=== PATIENT | female | born 1970 | race African-American/Black ===

== ENCOUNTER 2017-02-17 08:10 | Inpatient (IN) | payer OTHER ==
[~2017-02-17] VITALS: Ht 162.6 cm; Wt 90.0 kg
[~2017-02-17 08:10] MED LIST: AMLO-147 PO; AMOX1TAB10 PO; ASPI-664 PO; FAMO-96 PO; FLUT9.9S NASAL; GABA300C PO; INSU100C SC; LANT3I SC; LISI-525 PO; LORA-186 PO; METO-319 PO; NYST1000 PO; PANT40TA4 PO
[2017-02-17] MEDS ORDERED: SOD CHLORIDE 0.9% 1,000 ML IV STA ×2 (08:29→12:58)
[2017-02-17] MEDS ORDERED: ASPIRIN 325 MG TAB PO STA (08:29)
[2017-02-17] MEDS ORDERED: LORAZEPAM 2 MG INJ IV ONE (08:30)
--- NOTE | 2017-02-17 08:34 | ERD ---
ER Documentation Chief Complaint Chief Complaint LEFT side body weakness , onset 2 days ago HPI This a 46-year-old diabetic complaining of left-sided weakness and numbness. The patient states that her symptoms began 2 days ago. She states that her left side, face, arm and leg developed some tingling on Friday and then yesterday she developed some weakness on the left arm and leg. She said she had a hard time grabbing glasses with the left hand and she was dragging her left leg while walking. She did not come to the ER because she says she has a 5 -year-old daughter no one could take care of her at that time. She says today her symptoms are little worse. No headache. She says she has a history of prior strokes and TIA. No slurred speech no headache no visual change. ROS All systems reviewed and are negative except as per history of present illness. Medications Home Meds Active Scripts Gabapentin* (Neurontin*) 300 Mg Cap, 300 MG PO BID for 30 Days, CAP Prov:DEVONTE PAYAN 07/12/15 Reported Medications Levothyroxine Sodium* (Levothyroxine Sodium*) 88 Mcg Tablet, 88 MCG PO BEFORE BREAKFAST, #30 TAB 02/17/17 Insulin Glargine,Hum.rec.anlog (Toujeo Solostar) 300 Unit/1 Ml Insuln.pen, 45 UNIT SQ QHS 02/17/17 Insulin Lispro (Humalog Kwikpen) 200 Unit/1 Ml Insuln.pen, 35 UNIT SQ AC MEALS, EA 02/17/17 Metoprolol Succinate* (Toprol XL*) 25 Mg Tab.sr.24h, 75 MG PO DAILY, #90 TAB 02/17/17 Aspirin* (Aspirin* EC) 81 Mg Tablet.dr, 81 MG PO DAILY, TAB 04/18/14 Discontinued Reported Medications Metoprolol Succinate* (Toprol XL*) 50 Mg Tab.er.24h, 50 MG PO BID, TAB 04/18/14 Discontinued Scripts Amlodipine Besylate* (Amlodipine Besylate*) 10 Mg Tablet, 10 MG PO DAILY for 30 Days, TAB 1 Refill Prov:LEATHA CLEARY 10/21/15 Loratadine* (Claritin*) 10 Mg Tablet, 10 MG PO DAILY for 30 Days, TAB 1 Refill Prov:MADIHALEATHA Wolff. 10/21/15 Fluticasone Propionate (Flonase Allergy Relief) 9.9 Ml Peck.susp, 1 SPRAY NASAL BID, #1 BOTTLE 1 Refill TO EACH NOSTRIL Prov:LEATHA CLEARY 10/21/15 Famotidine* (Pepcid*) 20 Mg Tablet, 20 MG PO BID, #60 TAB Prov:LEATHA CLEARY 10/21/15 Nystatin (Nystatin) 100,000 Unit/1 Ml Oral.susp, 5 ML PO QID for 9 Days, ML Prov:LEATHA CLEARY 10/21/15 Amox Tr/Potassium Clavulanate (Amox Tr-K Clv 875-125 Mg Tab) 1 Tab Tablet, 1 TAB PO BID, #18 TAB Prov:LEATHA CLEARY. 10/21/15 Insulin Glargine* (Lantus*) 100 Unit/Ml Soln, 25 UNIT SC DAILY for 30 Days, EA 2 Refills Prov:LEATHA CLEARY 10/21/15 Insulin Lispro (Humalog) 100 U/Ml Cartridge, 10 UNITS SC BID, #30 EA 2 Refills Prov:LEATHA CLEARY. 10/21/15 Pantoprazole* (Pantoprazole*) 40 Mg Tabec, 40 MG PO DAILY@06 for 30 Days Prov:DEVONTE PAYAN 07/12/15 Lisinopril* (Zestril*) 20 Mg Tab, 20 MG PO BID for 30 Days, TAB Prov:DEVONTE PAYAN 07/12/15 Allergies Allergies: Coded Allergies: No Known Allergy (Unverified , 02/17/17) PMhx/Soc History of Surgery: No (denies) Anesthesia Reaction: No Hx Neurological Disorder: Yes (neuropathy,) Hx Respiratory Disorders: No Hx Cardiac Disorders: No (HTN) Hx Psychiatric Problems: No (denies) Hx Miscellaneous Medical Probl: Yes (CHRONIC PAIN SYNDROME, GI BLEED) Hx Alcohol Use: No Hx Substance Use: No Hx Tobacco Use: No (in the past) FmHx Family History: No coronary disease Physical Exam Vitals Vital Signs Date Time Temp Pulse Resp B/P Pulse Ox O2 Delivery O2 Flow Rate FiO2 02/17/17 11:22 82 16 102/88 99 Room Air 02/17/17 08:17 98.1 89 28 180/110 99 Physical Exam Const: Well-developed, well-nourished Head: Atraumatic, normocephalic Eyes: Normal Conjunctiva, PERRLA, EOMI, normal sclera, no nystagmus ENT: Normal External Ears, Nose and Mouth, moist mucus membranes. Neck: Full range of motion. No meningismus, no lymphadenopathy. Resp: Clear to auscultation bilaterally, no wheezing, rhonchi, rales Cardio: Regular rate and rhythm, no murmurs, S1 S2 present Abd: Soft, non tender x 4, non distended. Normal bowel sounds, no guarding or rebound, no pulsitile abdominal masses or bruits Skin: No petechiae or rashes, no ecchymosis , no maculopapular rash Back: No midline or flank tenderness Ext: No cyanosis, or edema, FROM x 4, normal inspection, neurovascularly intact x 4 Neur: [Awake and alert, left leg strength is 3 out of 5, left arm strength is 3 out of 5, left face is normal, left face arm and leg both with decreased sensation Psych: Anxious, hyperventilating Result Diagram: 02/17/17 0748 02/17/17 0748 Results 24 hrs Laboratory Tests Test 02/17/17 07:48 02/17/17 08:50 02/17/17 09:56 02/17/17 10:46 White Blood Count 11.410^3/ul Red Blood Count 4.9410^6/ul Hemoglobin 12.9g/dl Hematocrit 40.6% Mean Corpuscular Volume 82.2fl Mean Corpuscular Hemoglobin 26.1pg Mean Corpuscular Hemoglobin Concent 31.8g/dl Red Cell Distribution Width 13.9% Platelet Count 95941^3/UL Mean Platelet Volume 10.6fl Neutrophils % 82.0% Lymphocytes % 12.1% Monocytes % 4.8% Eosinophils % 0.3% Basophils % 0.3% Nucleated Red Blood Cells % 0.0/100WBC Neutrophils # 9.310^3/ul Lymphocytes # 1.410^3/ul Monocytes # 0.610^3/ul Eosinophils # 0.010^3/ul Basophils # 0.010^3/ul Nucleated Red Blood Cells # 0.010^3/ul Sodium Level 131mmol/L Potassium Level 5.5mmol/L Chloride Level 96mmol/L Carbon Dioxide Level 18mmol/L Anion Gap 23 Blood Urea Nitrogen 28mg/dl Creatinine 0.93mg/dl Glucose Level 613mg/dl Hemoglobin A1c 10.3% Calcium Level 8.8mg/dl Total Bilirubin 0.6mg/dl Direct Bilirubin 0.00mg/dl Indirect Bilirubin 0.6mg/dl Aspartate Amino Transf (AST/SGOT) 20IU/L Alanine Aminotransferase (ALT/SGPT) 34IU/L Alkaline Phosphatase 271IU/L Troponin I < 0.012ng/ml Total Protein 7.1g/dl Albumin 3.8g/dl Globulin 3.30g/dl Albumin/Globulin Ratio 1.15 Prothrombin Time 11.2Sec Prothrombin Time Ratio 0.9 INR International Normalized Ratio 0.81 Activated Partial Thromboplast Time 25.2Sec Bedside Glucose 562mg/dL 491mg/dL Current Medications Medications (Trade) Dose Ordered Sig/Leeann Route PRN Reason Start Time Stop Time Status Last Admin Dose Admin Sodium Chloride (NS) 1,000 ml @ 1,000 mls/hr Q1H STAT IV 02/17/17 08:29 02/17/17 09:28 DC 02/17/17 08:38 Aspirin (Aspirin) 325 mg ONCE STAT PO 02/17/17 08:29 02/17/17 08:31 DC 02/17/17 08:37 Lorazepam (Ativan) 1 mg ONCE ONCE IV 02/17/17 08:30 02/17/17 08:31 DC 02/17/17 08:38 Insulin Human Regular (Humulin R) 12 unit ONCE ONCE SC 02/17/17 10:00 02/17/17 10:01 DC 02/17/17 09:58 Procedures/MDM EKG: Rate/Rhythm: Normal Sinus Rhythm,NL intervals QRS, ST, QT: NORMAL [place], QRS, QT] Impression: NORMAL EKG PROCEDURE: CT Brain without contrast. CLINICAL INDICATION: Possible CVA. TECHNIQUE: A CT of the brain was performed on a [employer] 64-slice CT scanner utilizing axial imaging from the skull base through the vertex without IV contrast. Multiplanar reformatted images were made. Images were reviewed on a PACS workstation. The CTDIvol is 44.68 mGy and the DLP is 720.23 mGycm. DICOM images are available. One or more of the following dose reduction techniques were utilized: 1.) Automated exposure control 2.) Adjustment of the mA +/- kV according to patient's size 3.) Use of iterative reconstruction technique. COMPARISON: None. FINDINGS: There is no intracranial hemorrhage, mass effect, or midline shift. Mild generalized parenchymal volume loss is present. Areas of decreased attenuation are present right lentiform nuclei and posterior right internal capsule. Diagnostic considerations include remote lacunar infarcts and microvascular white matter ischemic disease, demyelinating plaques, and the sequelae of remote infectious or inflammatory changes. The ventricles are proportionate in size and demonstrate no evidence of hydrocephalus. No space occupying intra- axial masses or extra-axial fluid collections are present. There is no opacification of the mastoid sinuses. Mucosal thickening of the bilateral anterior ethmoid and the periphery of the left maxillary sinuses is present. IMPRESSION: 1. Areas of decreased attenuation within the right lentiform nuclei and posterior internal capsule with diagnostic considerations including remote lacunar infarcts and microvascular white matter ischemic changes, demyelinating plaques, and the sequelae of remote infectious or inflammatory changes. 2. Mild generalized parenchymal volume loss. 3. Mild mucosal thickening of the bilateral anterior ethmoid and left maxillary sinuses. RPTAT: HRSR Physician Felicity Date Time Electronically viewed and signed by Physician Felicity on 02/17/2017 09 :50 RR/ CC: DONOVAN GARCIA DO PROCEDURE: XR Chest. CLINICAL INDICATION: Possible stroke TECHNIQUE: A single AP view of the chest was obtained. COMPARISON: Chest x-ray dated 10/18/2015 FINDINGS: No focal airspace opacification, pleural effusion or pneumothorax is seen. The cardiomediastinal silhouette is within normal limits for size. The osseous structures are unremarkable. IMPRESSION: Unremarkable chest x-ray. RPTAT: HH .Lola Galaviz MD, Date Time Electronically viewed and signed by .Lola Galaviz MD, on 02/17/2017 09 :55 .G/ CC: DONOVAN GARCIA DO The patient is not a TPA candidate due to onset was this weekend. The patient still symptomatic now. The patient's blood sugar is out of control and she is acidotic. Will give IV fluids she is mildly hyperkalemic. We will admit for MRI and stroke workup and blood sugar control. Page Dr.KAMMA Mercado Diagnosis: Primary Impression: CVA (cerebral vascular accident) CVA mechanism: unspecified Qualified Code: I63.9 - Cerebrovascular accident (CVA), unspecified mechanism Condition: Stable DONOVAN GARCIA DO Feb 17, 2017 08:34 DONOVAN GARCIA DO Feb 17, 2017 08:34
[2017-02-17] MEDS ORDERED: METO-335 PO (08:43)
[2017-02-17] MEDS ORDERED: INSU200I SQ (08:43)
[2017-02-17] MEDS ORDERED: LEVO88TA3 PO (08:44)
[2017-02-17] MEDS ORDERED: INSU300I SQ (08:44)
[2017-02-17 09:05] LABS: BASOPHILS % 0.3 % (0.0-2.0); EOSINOPHILS % 0.3 % (0.0-7.0); HEMATOCRIT 40.6 % (37.0-47.0); HEMOGLOBIN 12.9 g/dl (12.0-16.0); LYMPHOCYTES # 1.4 10^3/ul (0.8-2.9); LYMPHOCYTES % 12.1 % (15.0-51.0); MEAN CORPUSCULAR HEMOGLOBIN 26.1 pg (29.0-33.0); MEAN CORPUSCULAR HGB CONC 31.8 g/dl (32.0-37.0); MEAN CORPUSCULAR VOLUME 82.2 fl (82.0-101.0); MEAN PLATELET VOLUME 10.6 fl (7.4-10.4); MONOCYTE # 0.6 10^3/ul (0.3-0.9); MONOCYTES % 4.8 % (0.0-11.0); NEUTROPHIL # 9.3 10^3/ul (1.6-7.5); PLATELET COUNT 455 10^3/UL (140-415); RED BLOOD COUNT 4.94 10^6/ul (4.20-5.40); RED CELL DISTRIBUTION WIDTH 13.9 % (11.5-14.5); WHITE BLOOD COUNT 11.4 10^3/ul (4.8-10.8)
[2017-02-17 09:19] LABS: INR 0.81; PROTIME 11.2 Sec (12.2-14.2); PT RATIO 0.9
[2017-02-17 09:20] LABS: PARTIAL THROMBOPLASTIN TIME 25.2 Sec (25.0-35.0)
[2017-02-17 09:24] LABS: ALANINE AMINOTRANSFERASE 34 IU/L (13-69); ALBUMIN 3.8 g/dl (3.3-4.9); ALBUMIN/GLOBULIN RATIO 1.15; ALKALINE PHOSPHATASE 271 IU/L (42-121); ANION GAP 23 (8-16); ASPARTATE AMINO TRANSFERASE 20 IU/L (15-46); BILIRUBIN,INDIRECT 0.6 mg/dl (0-1.1); BILIRUBIN,TOTAL 0.6 mg/dl (0.2-1.3); BLOOD UREA NITROGEN 28 mg/dl (7-20); CALCIUM 8.8 mg/dl (8.4-10.2); CARBON DIOXIDE 18 mmol/L (21-31); CHLORIDE 96 mmol/L (97-110); CREATININE 0.93 mg/dl (0.44-1.00); POTASSIUM 5.5 mmol/L (3.5-5.1); SODIUM 131 mmol/L (135-144); TOTAL PROTEIN 7.1 g/dl (6.1-8.1)
[2017-02-17 09:32] LABS: GLUCOSE 613 mg/dl (70-220)
[2017-02-17 09:36] LABS: TROPONIN-I < 0.012 ng/ml (0.00-0.12)
--- NOTE | 2017-02-17 09:50 | RADRPT ---
PROCEDURE: CT Brain without contrast. CLINICAL INDICATION: Possible CVA. TECHNIQUE: A CT of the brain was performed on a [employer] 64-slice CT scanner utilizing axial imaging from the skull base through the vertex without IV contrast. Multiplanar reformatted images were made. Images were reviewed on a PACS workstation. The CTDIvol is 44.68 mGy and the DLP is 720 .23 mGycm. DICOM images are available. One or more of the following dose reduction techniques were utilized: 1.) Automated exposure control 2.) Adjustment of the mA +/- kV according to patient's size 3.) Use of iterative reconstruction technique. COMPARISON: None. FINDINGS: There is no intracranial hemorrhage, mass effect, or midline shift. Mild generalized parenchymal vol ume loss is present. Areas of decreased attenuation are present right lentiform nuclei and posterior right internal capsule. Diagnostic considerations include remote lacunar infarcts and microvascular white matter ischemic disease, demyelinating plaques, and the sequelae of remote infectious or infl ammatory changes. The ventricles are proportionate in size and demonstrate no evidence of hydrocepha jair. No space occupying intra-axial masses or extra-axial fluid collections are present. There is no opacification of the mastoid sinuses. Mucosal thickening of the bilateral anterior ethmo id and the periphery of the left maxillary sinuses is present. IMPRESSION: 1. Areas of decreased attenuation within the right lentiform nuclei and posterior internal capsule w ith diagnostic considerations including remote lacunar infarcts and microvascular white matter ische gideon changes, demyelinating plaques, and the sequelae of remote infectious or inflammatory changes. 2. Mild generalized parenchymal volume loss. 3. Mild mucosal thickening of the bilateral anterior ethmoid and left maxillary sinuses. RPTAT: HRSR Physician Felicity Date Time Electronically viewed and signed by Physician Felicity on 02/17/2017 09:50 RR/
--- NOTE | 2017-02-17 09:56 | RADRPT ---
PROCEDURE: XR Chest. CLINICAL INDICATION: Possible stroke TECHNIQUE: A single AP view of the chest was obtained. COMPARISON: Chest x-ray dated 10/18/2015 FINDINGS: No focal airspace opacification, pleural effusion or pneumothorax is seen. The cardiomediastinal si lhouette is within normal limits for size. The osseous structures are unremarkable. IMPRESSION: Unremarkable chest x-ray. RPTAT: HH .Lola Galaviz MD, MD Date Time Electronically viewed and signed by .Lola Galaviz MD, on 02/17/2017 09:55 .G/
[2017-02-17] MEDS ORDERED: INSULIN REGULAR, HUMAN 100 UNIT/1 ML 3ML VIAL SC ONE ×2 (10:00→13:30)
[2017-02-17] MEDS ORDERED: SOD CHLORIDE 0.9% 1,000 ML IV SCH (13:05)
[2017-02-17] MEDS ORDERED: ONDANSETRON 4 MG INJ IV PRN ×2 (13:30→17:30)
[2017-02-17] MEDS ORDERED: ACETAMINOPHEN 325 MG TAB PO PRN ×2 (13:30→17:30)
[2017-02-17 14:35] VITALS: Ht 162.6 cm; Wt 90.0 kg
[2017-02-17] MEDS: SOD CHLORIDE 0.9% 1,000 ML IV SCH (17:22)
[2017-02-17] MEDS ORDERED: DOCUSATE SODIUM 100 MG CAP PO PRN (17:30)
[2017-02-17] MEDS ORDERED: NACL 0.9% 3 ML SYG IV SCH (17:30)
[2017-02-17] MEDS ORDERED: BISACODYL 10 MG SUPP PR PRN (17:30)
[2017-02-17] MEDS ORDERED: MAGNESIUM HYDROXIDE 30ML CUP PO PRN (17:30)
[2017-02-17] MEDS ORDERED: DEXTROSE 50% 50 ML SYRINGE IV PRN ×2 (18:00)
[2017-02-17] MEDS ORDERED: GLUCOSE GEL 15 GRAM TUBE BUCCAL PRN (18:00)
[2017-02-17] MEDS ORDERED: GLUCAGON 1 MG INJ IM PRN (18:00)
[2017-02-17] MEDS ORDERED: GLUCOSE GEL 15 GRAM TUBE PO PRN ×2 (18:00)
[2017-02-17] MEDS: INSULIN ASPART [NOVOLOG] 3 ML PEN SC SCH ×3 (18:00→22:29)
[2017-02-17 20:52] VITALS: TEMP 98.6
--- NOTE | 2017-02-17 20:54 | RADRPT ---
PROCEDURE: MRI Brain without contrast. CLINICAL INDICATION: Stroke TECHNIQUE: Routine MRI of the brain performed without intravenous contrast. COMPARISON: CT brain 02/17/2017 FINDINGS: Diffusion: 13 mm late acute infarct is present within the dorsal limb of the right internal capsule and adjacent thalamus; corresponding to the low attenuation changes on the [facility] Hemorrhage: No evidence of focal hematoma or subarachnoid hemorrhage. No evidence for remote blood d egradation products. Mass effect/midline shift: None. Parenchymal volume: Appears within normal limits for the patient's age. Ventricular system: Concordant with the degree of parenchymal volume. Parenchymal signal changes: Chronic lacunar infarcts also observed involving the right lentiform nuc leus, right thalamus, and right sinha radiata. Vasculature: Appropriate flow voids suggesting patency of the central arterial system and visualize d dural venous sinuses. Paranasal sinuses: Mild mucosal thickening of the paranasal sinuses is observed. Mastoid air cells: Clear. Calvarium: Within normal limits. Extracranial soft tissues: Within normal limits. IMPRESSION: 13 mm late acute infarct is present within the dorsal limb of the right internal capsule and adjacen t thalamus; corresponding to the low attenuation changes on the prior CT scan of the brain. Chronic lacunar infarcts also observed involving the right lentiform nucleus, right thalamus, and ri ght sinha radiata. RPTAT: AADD .Krish Chavez MD, MD Date Time Electronically viewed and signed by .Krish Chavez MD, on 02/17/2017 20:53 .B/
[2017-02-17] MEDS ORDERED: LABETALOL HCL 20MG INJ IV ONE (21:00)
--- NOTE | 2017-02-17 21:00 | RADRPT ---
PROCEDURE: MRA Brain without contrast. CLINICAL INDICATION: Stroke TECHNIQUE: MR angiography of the brain was performed without intravenous contrast. Multiplanar re constructions, three-dimensional reconstructions, as well as maximal intensity projection images are produced and reviewed. COMPARISON: CT brain 02/17/2017 FINDINGS: Internal carotid arteries: Evaluation is degraded due to patient motion artifact. Anterior cerebral arteries: A1 segments are codominant. Anterior communicating artery is visualized. Visualized A2 and A3 distribution of the anterior cerebral arteries are patent. Middle cerebral arteries: Both middle cerebral arteries as well as there branch vessels are patent and symmetric in appearance . Vertebral - basilar system: Possible moderate - severe stenosis of the mid segment of the right vertebral artery versus motion a rtifact. There is codominance. Basilar artery is patent. Posterior cerebral arteries: Patent bilaterally. IMPRESSION: Motion degraded examination. Possible moderate - severe stenosis of the right vertebral artery versus artifact. Degraded visualization of the cavernous segments of the bilateral internal carotid arteries. No evidence of vascular occlusion distal to the [place] of [place]. CT angiography of the intracranial circulation suggested for further evaluation. RPTAT: AADD .Krish Chavez MD, MD Date Time Electronically viewed and signed by .Krish Chavez MD, on 02/17/2017 21:00 .B/
[2017-02-17 21:31] VITALS: PULSE 83
[2017-02-17 21:44] VITALS: BP 131/74; RESP 16
[2017-02-17] MEDS: FAMOTIDINE 20 MG INJ IV SCH (21:45)
[2017-02-17] MEDS: GABAPENTIN 300 MG CAP PO SCH (21:45)
[2017-02-17] MEDS: INSULIN GLARGINE [LANtus] 3 ML PEN SC SCH (22:30)
[2017-02-17 23:49] VITALS: BP 149/74; RESP 16
[2017-02-18] VITALS (12 sets, daily range): BP systolic 102–191; BP diastolic 57–93; PULSE 79–89; RESP 16–22
[2017-02-18] MEDS: ACCU-CHEK XX SCH (01:57)
[2017-02-18] MEDS ORDERED: hydrALAzine 20 MG INJ ONE (04:50)
[2017-02-18] MEDS ORDERED: hydrALAzine 20 MG INJ IV ONE (05:00)
[2017-02-18 05:39] LABS: BASOPHIL # 0.1 10^3/ul (0.0-0.1); BASOPHILS % 0.5 % (0.0-2.0); EOSINOPHILS # 0.1 10^3/ul (0.0-0.5); EOSINOPHILS % 0.6 % (0.0-7.0); HEMATOCRIT 39.1 % (37.0-47.0); HEMOGLOBIN 12.8 g/dl (12.0-16.0); LYMPHOCYTES # 2.9 10^3/ul (0.8-2.9); LYMPHOCYTES % 28.7 % (15.0-51.0); MEAN CORPUSCULAR HEMOGLOBIN 27.1 pg (29.0-33.0); MEAN CORPUSCULAR HGB CONC 32.7 g/dl (32.0-37.0); MEAN CORPUSCULAR VOLUME 82.8 fl (82.0-101.0); MEAN PLATELET VOLUME 10.5 fl (7.4-10.4); MONOCYTE # 0.7 10^3/ul (0.3-0.9); MONOCYTES % 6.5 % (0.0-11.0); NEUTROPHIL # 6.3 10^3/ul (1.6-7.5); NEUTROPHILS % 63.3 % (39.0-77.0); PLATELET COUNT 449 10^3/UL (140-415); RED BLOOD COUNT 4.72 10^6/ul (4.20-5.40)
--- NOTE | 2017-02-18 05:46 | RADRPT ---
PROCEDURE: XR Chest. CLINICAL INDICATION: High blood pressure in chest pain TECHNIQUE: AP Portable chest. COMPARISON: 10/18/2015 chest x-ray FINDINGS: The soft tissues and bones are normal with multiple EKG leads superimposed on chest wall.. No focal infiltrates, masses, or effusions are noted. The mediastinum and heart are remarkable for mild ear ly vascular calcifications of the thoracic aorta and borderline cardiomegaly.. No pneumothorax is p resent. IMPRESSION: 1. No radiographic evidence for acute cardiopulmonary disease 2. Mild atherosclerotic vascular disease and borderline cardiomegaly RPTAT: HDC .Inna Sellers MD, MD Date Time Electronically viewed and signed by .Inna Sellers MD, MD on 02/18/2017 05:46 .C/
[2017-02-18 06:19] LABS: MAGNESIUM 1.9 mg/dl (1.7-2.5); PHOSPHORUS 3.4 mg/dl (2.5-4.9)
[2017-02-18] MEDS: SOD CHLORIDE 0.9% 1,000 ML IV SCH (06:20)
[2017-02-18] MEDS: LEVOTHYROXINE 88 MCG TAB PO SCH (06:21)
[2017-02-18 06:26] LABS: ALBUMIN 3.6 g/dl (3.3-4.9); ALBUMIN/GLOBULIN RATIO 1.09; BILIRUBIN,INDIRECT 0.6 mg/dl (0-1.1); BILIRUBIN,TOTAL 0.6 mg/dl (0.2-1.3); CALCIUM 8.8 mg/dl (8.4-10.2); CHOL/HDL RATIO 5.3 RATIO; CREATININE 0.79 mg/dl (0.44-1.00); POTASSIUM 4.1 mmol/L (3.5-5.1); TOTAL PROTEIN 6.9 g/dl (6.1-8.1)
--- NOTE | 2017-02-18 06:34 | EN ---
Date/Time of Note Date/Time of Note DATE: 02/18/17 TIME: 06:24 Event Note Medicine Medicine Event Note [employer] note I was called by the nurse for rapid response secondary to the patient's elevation in her blood pressures. The nurse originally called the primary team and the recommendation was to send the patient to the ICU and start a Cardene drip however as there were no ICU beds at the current time than nurse called a rapid response. Patient's blood pressure was approximately 213/105. She was originally admitted for symptoms of left-sided weakness that started on Friday. At the current time she states that she does not have any new weakness. She denies any headaches at this time but she does state that she feels like something is not right. Patient was given hydralazine 20 mg IV 1. During the course of the [employer] the patient's blood pressure subsequently began to improve gradually. Patient states that she was feeling much better, which coincided with her improvement in her blood pressures. She denied any chest pain or shortness of breath. Vital signs: Initial BP 213/105 with gradual improvement of BP to 179/87. Heart rate: 86 Respirations: 18 PO2: 96% on room air HEENT: Normocephalic atraumatic, EOMI CVS: Regular rate rhythm, no overt murmurs appreciated Lungs: Clear to auscultation bilaterally, no rales or wheezes Neurovascular: Alert and oriented 3, normal speech, cranial nerves II through XII intact, left upper and lower extremity weakness which is unchanged from admission. Assessment and plan: #1 hypertensive urgency: At the current time patient is not displaying any new focal neurological deficits. She has normal speech. She was given a stat dose of hydralazine 20 mg IV 1 with good effect resulting in significant improvement of her blood pressure. I advised the nurse to continue to monitor the patient's blood pressure and to call me with updates on the blood pressure as well as the primary doctor. Greater than 30 minutes of critical care time was spent on the care management of this patient. SCOT AMBROSIO Feb 18, 2017 06:34
[2017-02-18] MEDS: INSULIN ASPART [NOVOLOG] 3 ML PEN SC SCH ×7 (08:00→21:00)
[2017-02-18] MEDS: GABAPENTIN 300 MG CAP PO SCH ×2 (08:50→20:53)
[2017-02-18] MEDS: ASPIRIN (EC) 81 MG TAB PO SCH (08:50)
[2017-02-18] MEDS: CLOPIDOGREL 75 MG TAB PO SCH (08:54)
[2017-02-18] MEDS: METOPROLOL (XL) 25 MG TAB PO SCH (08:54)
[2017-02-18] MEDS: FAMOTIDINE 20 MG INJ IV SCH (08:55)
--- NOTE | 2017-02-18 09:28 | HP ---
Date/Time of Note Date/Time of Note DATE: 02/18/17 TIME: 09:28 Assessment/Plan VTE Prophylaxis VTE Prophylaxis Intervention: LMWH Lines/Catheters IV Catheter Type (from [facility]): [place] Assessment/Plan Assessment/Plan 46-year-old female: 1. Late acute/subacute CVA, with right internal capsule/thalamus infarct on MRI , appreciate recommendations from neurology, patient's deficits are not progressing. Blood pressure was elevated overnight but now better controlled. Continue PT, OT. Blood pressure control and blood sugar control. Statins have been started. On dual antiplatelet. We will follow further recommendations from neurology. 2D echocardiogram pending. No arrhythmia detected 2. Type 1 diabetes mellitus: Uncontrolled, A1c 10.3, insulin has been redosed. Diabetic education consult ordered as patient noncompliant with diet or blood sugar checks. 3. Hypertension: Medications have been adjusted, patient on Toprol-XL, Cozaar has been added. Hydralazine as needed. 4. Hyperlipidemia: Patient started on Lipitor 80 mg p.o. nightly. Lifestyle/ diet modifications. 5. Morbid obesity: Lifestyle/diet modifications, recheck thyroid function testing. 6. Hypothyroidism: Continue Synthroid, check TFTs, adjust Synthroid dosing as needed. 7. Diabetic neuropathy, gastroparesis, possible retinopathy: Continue current medications, I have advised patient again, he needs to have a blood sugars better control if she expects any improvement of these complications of her diabetes mellitus. 8. Tobacco use: Patient has agreed to quit, she was down to 2 cigarettes a day. Prophylaxis: Lovenox for DVT prophylaxis, Pepcid for GI prophylaxis. Disposition: PT, OT evaluation, diabetic education consult pending HPI/ROS Admit Date/Time Admit Date/Time Feb 17, 2017 at 13:06 Hx of Present Illness Chief complaint: Left hemiparesis 2 days History of presenting illness: This is 46-year-old female with type I diabetes mellitus uncontrolled, hypertension, hypothyroidism, old TIA who presented in the emergency department with complaint of left upper and lower extremities weakness, left hand numbness that started 48 hours ago. Patient also reports easy fatigue over the past few months, ongoing weight gain, she was told she was hypothyroid and has been on levothyroxine same dosage for the past year and a half almost. Her blood sugars are not well-controlled, patient is noncompliant with diet, she barely checks her blood sugars, her blood pressure are also not controlled well controlled and she is aware of it. CAT scan of the brain did suggest subacute CVA, MRI of the brain did confirm late acute CVA right internal capsule/thalamus. Physical therapy has been ordered, she has been seen by speech therapy, occupational therapy also ordered. 2D echocardiogram pending, neurology has made evaluation and recommendation, patient currently on dual antiplatelets along with statin therapy and blood pressure agents Patient denies any fevers, chills, nausea or vomiting, however she has chronic abdominal pain/cramping, she does have gastroparesis. She also has neuropathy with lower extremity cramping. She also likely has a diabetic retinopathy as she claimed that her vision seems to be declining over the past few years. ROS Constitutional: fatigue, poor po (Known diabetic gastroparesis) Eyes: visual change (Over time, decreasing vision.) Respiratory: no complaints Cardiovascular: no complaints Gastrointestinal: no complaints Genitourinary: no complaints Musculoskeletal: no complaints Skin: no complaints Neurologic: dizziness (Occasional), focal-weakness (Left hemiparesis) Endocrine: other (Uncontrolled diabetes) Psychological: anxiety PMH/Family/Social Past Medical History 1. Type 1 diabetes mellitus, with last A1c of 10.3 2. Hypertension 3. Chronic hypochromic anemia, stable. 4. ? History of fibromyalgia. 5. Morbid obesity 6. Diabetic gastroparesis, chronic 7. Hyperlipidemia 8. Old CVA, TIA a couple years ago 9. Hypothyroidism Past Surgical History Status post ORIF left tib-fib 2006 Status post 2011 and 1993 Status post cyst removal right arm past year 2 Past Surgical Hx: other Family History Significant Family History: heart disease, diabetes, hypertension, vascular disease Social History Alcohol Use: none Smoking Status: Current some day smoker (Patient was smoking at least half a pack a day for the past 35 years and has cut down to 2 cigarettes a day for the past year) Drug Use: none Exam/Review of Systems Vital Signs Vitals Vital Signs Date Time Temp Pulse Resp B/P Pulse Ox O2 Delivery O2 Flow Rate FiO2 02/18/17 08:11 98.3 94 18 163/85 99 02/17/17 20:52 Room Air Intake and Output 02/17/17 02/17/17 02/18/17 15:00 23:00 07:00 Intake Total 720 ml Balance 720 ml Exam Constitutional: alert, oriented, other (Morbidly obese), well developed Respiratory: clear to auscultation, normal air movement Cardiovascular: nl pulses, regular rate and rhythm Gastrointestinal: non-tender, soft Musculoskeletal: nl extremities to inspection, nl gait and stance Extremities: normal pulses, other (No edema, clubbing or cyanosis) Neurological: RETAIL RESET MERCHANDISER II-XII intact, focal weakness (Left hemiparesis, gait abnormalities), nl mental status, nl speech, numbness (Left upper extremity) Labs Result Diagram: 02/18/1751302/18/17513 Medications Medications Current Medications Aspirin (Halfprin) 81 mg DAILY PO Last administered on 02/18/17 08:50; Admin Dose 81 MG; Start 02/18/17 at 09:00 Gabapentin (Neurontin) 300 mg BID PO Last administered on 02/18/17 08:50; Admin Dose 300 MG; Start 02/17/17 at 21:00 Levothyroxine Sodium (Synthroid) 88 mcg DAILY@06 PO Last administered on 06:21; Admin Dose 88 MCG; Start 02/18/17 at 06:00 Metoprolol Succinate 75 mg 75 mg DAILY PO Last administered on 02/18/17 08:54 ; Admin Dose 75 MG; Start 02/18/17 at 09:00 Sodium Chloride (NS) 1,000 ml @ 75 mls/hr [id number] IV Last administered on 17:22; Admin Dose 75 MLS/HR; Start 02/17/17 at 17:22 Ondansetron HCl (Zofran Inj) 4 mg Q6H PRN IV NAUSEA AND/OR VOMITING; Start at 17:30 Acetaminophen (Tylenol Tab) 650 mg Q6H PRN PO PAIN LEVEL 1-3 OR FEVER; Start 02/17/17 at 17:30 Acetaminophen/ Hydrocodone Bitart ([place] (5/325)) 1 tab Q6H PRN PO PAIN LEVEL 4 -6; Start 02/17/17 at 17:30 Docusate Sodium (Colace) 100 mg Q12H PRN PO CONSTIPATION; Start 02/17/17 at 17 :30 Magnesium Hydroxide (Milk Of Mag) 30 ml DAILY PRN PO CONSTIPATION; Start 02/17 at 17:30 Bisacodyl (Dulcolax Supp) 10 mg DAILY PRN [place] CONSTIPATION; Start 02/17/17 at 17:30 Famotidine (Pepcid Iv) 20 mg Q12 IV Last administered on 02/18/17 08:55; Admin Dose 20 MG; Start 02/17/17 at 21:00 Enoxaparin Sodium (Lovenox) 40 mg DAILY SC ; Start 02/18/17 at 09:00 Clopidogrel Bisulfate (plaVIX) 75 mg DAILY PO Last administered on 02/18/17 08:54; Admin Dose 75 MG; Start 02/18/17 at 09:00 Diagnostic Test (Pha) (Accu-Chek) 1 ea 02 XX ; Start 02/18/17 at 02:00 Insulin Glargine (Lantus) 27 unit DAILY@20 SC Last administered on 02/17/17 22:30; Admin Dose 27 UNIT; Start 02/17/17 at 20:00 Miscellaneous Information 1 ea NOTE XX ; Start 02/17/17 at 18:00 Glucose (Glutose) 15 gm Q15M PRN PO DECREASED GLUCOSE; Start 02/17/17 at 18:00 Glucose (Glutose) 22.5 gm Q15M PRN PO DECREASED GLUCOSE; Start 02/17/17 at 18: 00 Dextrose (D50w Syringe) 25 ml Q15M PRN IV DECREASED GLUCOSE; Start 02/17/17 at 18:00 Dextrose (D50w Syringe) 50 ml Q15M PRN IV DECREASED GLUCOSE; Start 02/17/17 at 18:00 Glucagon (Glucagen) 1 mg Q15M PRN IM DECREASED GLUCOSE; Start 02/17/17 at 18: 00 Glucose (Glutose) 15 gm Q15M PRN BUCCAL DECREASED GLUCOSE; Start 02/17/17 at 18:00 Atorvastatin Calcium (Lipitor) 80 mg HS PO ; Start 02/18/17 at 21:00 CHANDU BARRON Feb 18, 2017 09:28
[2017-02-18] MEDS ORDERED: hydrALAzine 20 MG INJ IV PRN (09:30)
[2017-02-18] MEDS: ENOXAPARIN 40 MG/0.4 ML SYG SC SCH (09:35)
--- NOTE | 2017-02-18 11:47 | CONS ---
Date/Time of Note Date/Time of Note DATE: 02/18/17 TIME: 11:40 Assessment/Plan Assessment/Plan Chief Complaint/Hosp Course 46 yo female with DM, HTN, CAD, obesity uncontrolled risk factors admitted with right internal capsule infarct with left sided motor and sensory weakness. Etiology small vessel disease Plan: SBP less than 140/90 MRA Neck without contrast uncontrolled DM requires more optimal control weight loss dietary modification ECHO c/w dual antiplatelet Lipitor 80 mg for LDL >100 c/w Gabapentin for neuropathy may pursue further keller as outpatient for neuropathy PT/OT/Speech DVT ppx Problems: Consultation Date/Type/Reason Admit Date/Time Feb 17, 2017 at 13:06 Date of Consultation: Feb 18, 2017 Type of Consultation: Neurology Reason for Consultation CVA Referring Provider: CHANDU BARRON Hx of Present Illness 46 yo female with hx of Type I DM over 40 years uncontrolled, HTN, CAD, HLD, p/ w left sided numbness and weakness since this past Friday. CTH shows a 13 mm infarct in dorsal limb right IC and thalamus. Glucose on admission smoking hin 600 range. She admits to taking aspirin daily, only checks her blood glucose when he feels ill. left sided numbness weakness Past Surgical History Past Surgical Hx: other Social History Smoking Status: Current some day smoker Exam/Review of Systems Vital Signs Vitals Vital Signs Date Time Temp Pulse Resp B/P Pulse Ox O2 Delivery O2 Flow Rate FiO2 02/18/17 08:11 98.3 94 18 163/85 99 02/17/17 20:52 Room Air Intake and Output 02/17/17 02/17/17 02/18/17 15:00 23:00 07:00 Intake Total 720 ml Balance 720 ml Exam Constitutional: alert, obese, oriented Neurological: nl mental status, nl speech (left NLF flattening, left arm 4/5 drift and left leg 4/5 decreased sensation to left arm and leg) Results Result Diagram: 02/18/17 0514 02/18/1714 Results 24 hrs Laboratory Tests Test 02/17/17 14:18 02/17/17 16:55 02/17/17 18:49 02/17/17 22:22 Bedside Glucose 179 227 H 312 H 265 H Test 02/18/17 01:43 02/18/17 04:48 02/18/17 05:14 02/18/17 08:07 Bedside Glucose 277 H 244 H 170 White Blood Count 10.0 Red Blood Count 4.72 Hemoglobin 12.8 Hematocrit 39.1 Mean Corpuscular Volume 82.8 Mean Corpuscular Hemoglobin 27.1 L Mean Corpuscular Hemoglobin Concent 32.7 Red Cell Distribution Width 14.0 Platelet Count 449 H Mean Platelet Volume 10.5 H Neutrophils % 63.3 Lymphocytes % 28.7 Monocytes % 6.5 Eosinophils % 0.6 Basophils % 0.5 Nucleated Red Blood Cells % 0.0 Neutrophils # 6.3 Lymphocytes # 2.9 Monocytes # 0.7 Eosinophils # 0.1 Basophils # 0.1 Nucleated Red Blood Cells # 0.0 Sodium Level 138 Potassium Level 4.1 Chloride Level 105 Carbon Dioxide Level 21 Anion Gap 16 # Blood Urea Nitrogen 17 # Creatinine 0.79 Glucose Level 224 #H Calcium Level 8.8 Phosphorus Level 3.4 Magnesium Level 1.9 Total Bilirubin 0.6 Direct Bilirubin 0.00 Indirect Bilirubin 0.6 Aspartate Amino Transf (AST/SGOT) 19 Alanine Aminotransferase (ALT/SGPT) 25 Alkaline Phosphatase 224 H Total Protein 6.9 Albumin 3.6 Globulin 3.30 H Albumin/Globulin Ratio 1.09 Triglycerides Level 366 H Cholesterol Level 229 H LDL Cholesterol, Calculated 113 HDL Cholesterol 43 Cholesterol/HDL Ratio 5.3 Medications Medications Current Medications Aspirin (Halfprin) 81 mg DAILY PO Last administered on 02/18/17 08:50; Admin Dose 81 MG; Start 02/18/17 at 09:00 Gabapentin (Neurontin) 300 mg BID PO Last administered on 02/18/17 08:50; Admin Dose 300 MG; Start 02/17/17 at 21:00 Levothyroxine Sodium (Synthroid) 88 mcg DAILY@06 PO Last administered on 06:21; Admin Dose 88 MCG; Start 02/18/17 at 06:00 Metoprolol Succinate 75 mg 75 mg DAILY PO Last administered on 02/18/17 08:54 ; Admin Dose 75 MG; Start 02/18/17 at 09:00 Sodium Chloride (NS) 1,000 ml @ 75 mls/hr [id number] IV Last administered on 17:22; Admin Dose 75 MLS/HR; Start 02/17/17 at 17:22 Ondansetron HCl (Zofran Inj) 4 mg Q6H PRN IV NAUSEA AND/OR VOMITING; Start at 17:30 Acetaminophen (Tylenol Tab) 650 mg Q6H PRN PO PAIN LEVEL 1-3 OR FEVER; Start 02/17/17 at 17:30 Acetaminophen/ Hydrocodone Bitart ([place] (5/325)) 1 tab Q6H PRN PO PAIN LEVEL 4 -6; Start 02/17/17 at 17:30 Docusate Sodium (Colace) 100 mg Q12H PRN PO CONSTIPATION; Start 02/17/17 at 17 :30 Magnesium Hydroxide (Milk Of Mag) 30 ml DAILY PRN PO CONSTIPATION; Start 02/17 at 17:30 Bisacodyl (Dulcolax Supp) 10 mg DAILY PRN [place] CONSTIPATION; Start 02/17/17 at 17:30 Famotidine (Pepcid Iv) 20 mg Q12 IV Last administered on 02/18/17 08:55; Admin Dose 20 MG; Start 02/17/17 at 21:00 Enoxaparin Sodium (Lovenox) 40 mg DAILY SC Last administered on 02/18/17 09: 35; Admin Dose 40 MG; Start 02/18/17 at 09:00 Clopidogrel Bisulfate (plaVIX) 75 mg DAILY PO Last administered on 02/18/17 08:54; Admin Dose 75 MG; Start 02/18/17 at 09:00 Diagnostic Test (Pha) (Accu-Chek) 1 ea 02 XX ; Start 02/18/17 at 02:00 Insulin Glargine (Lantus) 27 unit DAILY@20 SC Last administered on 02/17/17 22:30; Admin Dose 27 UNIT; Start 02/17/17 at 20:00 Miscellaneous Information 1 ea NOTE XX ; Start 02/17/17 at 18:00 Glucose (Glutose) 15 gm Q15M PRN PO DECREASED GLUCOSE; Start 02/17/17 at 18:00 Glucose (Glutose) 22.5 gm Q15M PRN PO DECREASED GLUCOSE; Start 02/17/17 at 18: 00 Dextrose (D50w Syringe) 25 ml Q15M PRN IV DECREASED GLUCOSE; Start 02/17/17 at 18:00 Dextrose (D50w Syringe) 50 ml Q15M PRN IV DECREASED GLUCOSE; Start 02/17/17 at 18:00 Glucagon (Glucagen) 1 mg Q15M PRN IM DECREASED GLUCOSE; Start 02/17/17 at 18: 00 Glucose (Glutose) 15 gm Q15M PRN BUCCAL DECREASED GLUCOSE; Start 02/17/17 at 18:00 Atorvastatin Calcium (Lipitor) 80 mg HS PO ; Start 02/18/17 at 21:00 Hydralazine HCl (Apresoline) 10 mg Q6H PRN IV ELEVATED BLOOD PRESSURE; Start 02/18/17 at 09:30 Losartan Potassium (Cozaar) 25 mg BID PO ; Start 02/18/17 at 10:00 SRAVANI LOCKHART MD Feb 18, 2017 11:47
[2017-02-18] MEDS: LOSARTAN 25 MG TAB PO SCH ×2 (12:32→20:53)
[2017-02-18] MEDS: ATORVASTATIN 80 MG TAB PO SCH (20:52)
[2017-02-18] MEDS: FAMOTIDINE 20 MG TAB PO SCH (20:53)
[2017-02-18] MEDS: INSULIN GLARGINE [LANtus] 3 ML PEN SC SCH (20:55)
[2017-02-19] VITALS (11 sets, daily range): BP systolic 153–179; BP diastolic 74–84; PULSE 66–77; RESP 16–21
[2017-02-19] MEDS: ACCU-CHEK XX SCH (02:00)
[2017-02-19] MEDS: LEVOTHYROXINE 88 MCG TAB PO SCH (06:31)
[2017-02-19] MEDS: INSULIN ASPART [NOVOLOG] 3 ML PEN SC SCH ×9 (08:00→21:00)
[2017-02-19] MEDS: CLOPIDOGREL 75 MG TAB PO SCH (08:16)
[2017-02-19] MEDS: FAMOTIDINE 20 MG TAB PO SCH ×2 (08:16→20:45)
[2017-02-19] MEDS: GABAPENTIN 300 MG CAP PO SCH ×2 (08:16→20:43)
[2017-02-19] MEDS: ASPIRIN (EC) 81 MG TAB PO SCH (08:16)
[2017-02-19] MEDS: LOSARTAN 25 MG TAB PO SCH ×2 (08:17→20:45)
[2017-02-19] MEDS: METOPROLOL (XL) 25 MG TAB PO SCH (08:19)
[2017-02-19] MEDS: ENOXAPARIN 40 MG/0.4 ML SYG SC SCH (08:35)
[2017-02-19] MEDS: HYDROCODONE/APAP (5/325) TAB PO PRN (10:56)
--- NOTE | 2017-02-19 11:53 | CONS ---
Date/Time of Note Date/Time of Note DATE: 02/19/17 TIME: 11:51 Consult Date/Type/Reason Admit Date/Time Feb 17, 2017 at 13:06 Initial Consult Date 02/18/17 Type of Consultation: Neurology Reason for Consultation CVA Ordering Provider: CHANDU BARRON Subjective c/o headaches received [place] Objective Vital Signs Date Time Temp Pulse Resp B/P Pulse Ox O2 Delivery O2 Flow Rate FiO2 02/19/17 11:44 98.1 71 21 165/83 97 02/17/17 20:52 Room Air Intake and Output 02/18/17 02/18/17 02/19/17 14:59 22:59 06:59 Intake Total 1080 ml 600 ml Balance 1080 ml 600 ml Exam Results/Medications Result Diagram: 02/18/1751302/18/1714 Results 24 hrs Laboratory Tests Test 02/18/17 12:22 02/18/17 17:21 02/18/17 20:50 02/19/17 08:13 Bedside Glucose 103 121 162 93 Medications Current Medications Aspirin (Halfprin) 81 mg DAILY PO Last administered on 02/19/17 08:16; Admin Dose 81 MG; Start 02/18/17 at 09:00 Gabapentin (Neurontin) 300 mg BID PO Last administered on 02/19/17 08:16; Admin Dose 300 MG; Start 02/17/17 at 21:00 Levothyroxine Sodium (Synthroid) 88 mcg DAILY@06 PO Last administered on 06:31; Admin Dose 88 MCG; Start 02/18/17 at 06:00 Metoprolol Succinate (Toprol Xl) 75 mg DAILY PO Last administered on 08:19; Admin Dose 75 MG; Start 02/18/17 at 09:00 Ondansetron HCl (Zofran Inj) 4 mg Q6H PRN IV NAUSEA AND/OR VOMITING; Start at 17:30 Acetaminophen (Tylenol Tab) 650 mg Q6H PRN PO PAIN LEVEL 1-3 OR FEVER Last administered on 02/19/17 06:33; Admin Dose 650 MG; Start 02/17/17 at 17:30 Acetaminophen/ Hydrocodone Bitart ([place] (5/325)) 1 tab Q6H PRN PO PAIN LEVEL 4 -6 Last administered on 02/19/17 10:56; Admin Dose 1 TAB; Start 02/17/17 at 17:30 Docusate Sodium (Colace) 100 mg Q12H PRN PO CONSTIPATION; Start 02/17/17 at 17 :30 Magnesium Hydroxide (Milk Of Mag) 30 ml DAILY PRN PO CONSTIPATION; Start 02/17 at 17:30 Bisacodyl (Dulcolax Supp) 10 mg DAILY PRN [place] CONSTIPATION; Start 02/17/17 at 17:30 Enoxaparin Sodium (Lovenox) 40 mg DAILY SC Last administered on 02/19/17 08: 35; Admin Dose 40 MG; Start 02/18/17 at 09:00 Clopidogrel Bisulfate (plaVIX) 75 mg DAILY PO Last administered on 02/19/17 08:16; Admin Dose 75 MG; Start 02/18/17 at 09:00 Diagnostic Test (Pha) (Accu-Chek) 1 ea 02 XX ; Start 02/18/17 at 02:00 Insulin Glargine (Lantus) 27 unit DAILY@20 SC Last administered on 02/18/17 20:55; Admin Dose 27 UNIT; Start 02/17/17 at 20:00 Miscellaneous Information 1 ea NOTE XX ; Start 02/17/17 at 18:00 Glucose (Glutose) 15 gm Q15M PRN PO DECREASED GLUCOSE; Start 02/17/17 at 18:00 Glucose (Glutose) 22.5 gm Q15M PRN PO DECREASED GLUCOSE; Start 02/17/17 at 18: 00 Dextrose (D50w Syringe) 25 ml Q15M PRN IV DECREASED GLUCOSE; Start 02/17/17 at 18:00 Dextrose (D50w Syringe) 50 ml Q15M PRN IV DECREASED GLUCOSE; Start 02/17/17 at 18:00 Glucagon (Glucagen) 1 mg Q15M PRN IM DECREASED GLUCOSE; Start 02/17/17 at 18: 00 Glucose (Glutose) 15 gm Q15M PRN BUCCAL DECREASED GLUCOSE; Start 02/17/17 at 18:00 Atorvastatin Calcium (Lipitor) 80 mg HS PO Last administered on 02/18/17 20: 52; Admin Dose 80 MG; Start 02/18/17 at 21:00 Hydralazine HCl (Apresoline) 10 mg Q6H PRN IV ELEVATED BLOOD PRESSURE; Start 02/18/17 at 09:30 Losartan Potassium (Cozaar) 25 mg BID PO Last administered on 02/19/17 08:17 ; Admin Dose 25 MG; Start 02/18/17 at 10:00 Famotidine (Pepcid) 20 mg BID PO Last administered on 02/19/17 08:16; Admin Dose 20 MG; Start 02/18/17 at 21:00 Assessment/Plan Chief Complaint/Hosp Course 46 yo female with DM, HTN, CAD, obesity uncontrolled risk factors admitted with right internal capsule infarct with left sided motor and sensory weakness. Etiology small vessel disease Plan: SBP less than 140/90 MRA Neck without contrast- discontinued patient is claustrophic will order a Duplex instead uncontrolled DM requires more optimal control weight loss dietary modification ECHO c/w dual antiplatelet Lipitor 80 mg for LDL >100 Toradol 15 mg q6h prn for ENCARNACION c/w Gabapentin for neuropathy may pursue further keller as outpatient for neuropathy PT/OT/Speech DVT ppx Problems: SRAVANI LOCKHART MD Feb 19, 2017 11:53
[2017-02-19] MEDS ORDERED: KETOROLAC 15 MG INJ IV PRN (12:00)
--- NOTE | 2017-02-19 12:25 | PN ---
Date/Time of Note Date/Time of Note DATE: 02/19/17 TIME: 12:22 Assessment/Plan VTE Prophylaxis VTE Prophylaxis Intervention: LMWH Lines/Catheters IV [facility] ([facility] Saline Lock Assessment/Plan Assessment/Plan 46-year-old female: 1. Late acute/subacute CVA, with right internal capsule/thalamus infarct on MRI , appreciate recommendations from neurology, patient's deficits are not progressing. Blood pressure was elevated overnight but now better controlled. Continue PT, OT. Blood pressure control and blood sugar control. Statins have been started. On dual antiplatelet. Follow-up carotid Doppler ultrasound, follow-up echocardiogram results No arrhythmia detected 2. Type 1 diabetes mellitus: Uncontrolled, A1c 10.3, insulin has been redosed. Appreciate life skills educator recommendations Adjusting insulin regimen, will require glucometer upon discharge Will refer to endocrinology and outpatient diabetic education at the time of discharge 3. Hypertension: Medications have been adjusted, patient on Toprol-XL, Cozaar has been added. Hydralazine as needed. Blood pressure better controlled 4. Hyperlipidemia: Patient started on Lipitor 80 mg p.o. nightly. Lifestyle/diet modifications. 5. Morbid obesity: Lifestyle/diet modifications, TFTs within normal. 6. Hypothyroidism: Continue Synthroid, TFTs within normal. 7. Diabetic neuropathy, gastroparesis, possible retinopathy: Continue current medications, I have advised patient again, he needs to have a blood sugars better control if she expects any improvement of these complications of her diabetes mellitus. 8. Tobacco use: Patient has agreed to quit, she was down to 2 cigarettes a day. Prophylaxis: Lovenox for DVT prophylaxis, Pepcid for GI prophylaxis. Disposition: Discharge planning for tomorrow, patient will require prescription for all her medications, referral to endocrinology, referral to outpatient diabetic education. She has declined physical therapy at discharge because of a home situation. However will order FWW. Subjective 24 Hr Interval Summary Free Text/Dictation Patient doing better, much more awake, blood sugar fluctuation noted, appreciate life skills educator recommendations. Appropriate changes made today. Will monitor overnight, discharge planning tomorrow. Carted Doppler ultrasound pending Exam/Review of Systems Vital Signs Vitals Vital Signs Date Time Temp Pulse Resp B/P Pulse Ox O2 Delivery O2 Flow Rate FiO2 02/19/17 12:13 71 02/19/17 11:44 98.1 21 165/83 97 02/17/17 20:52 Room Air Intake and Output 02/18/17 02/18/17 02/19/17 14:59 22:59 06:59 Intake Total 1080 ml 600 ml Balance 1080 ml 600 ml Exam Constitutional: alert, oriented, well developed Neck: non-tender, supple Respiratory: clear to auscultation, normal air movement Cardiovascular: nl pulses, regular rate and rhythm Gastrointestinal: non-tender, soft Musculoskeletal: nl extremities to inspection Extremities: normal pulses, other (No edema, clubbing or cyanosis) Neurological: MAINTENANCE JOB TITLES II-XII intact, focal weakness (Left hemiparesis improved), nl mental status, nl speech Results Result Diagram: 02/18/1751302/18/1714 Results 24 hrs Laboratory Tests Test 02/18/17 17:21 02/18/17 20:50 02/19/17 08:13 02/19/17 12:01 Bedside Glucose 121 162 93 65 L Medications Medications Current Medications Aspirin (Halfprin) 81 mg DAILY PO Last administered on 02/19/17 08:16; Admin Dose 81 MG; Start 02/18/17 at 09:00 Gabapentin (Neurontin) 300 mg BID PO Last administered on 02/19/17 08:16; Admin Dose 300 MG; Start 02/17/17 at 21:00 Levothyroxine Sodium (Synthroid) 88 mcg DAILY@06 PO Last administered on 06:31; Admin Dose 88 MCG; Start 02/18/17 at 06:00 Metoprolol Succinate (Toprol Xl) 75 mg DAILY PO Last administered on 08:19; Admin Dose 75 MG; Start 02/18/17 at 09:00 Ondansetron HCl (Zofran Inj) 4 mg Q6H PRN IV NAUSEA AND/OR VOMITING; Start at 17:30 Acetaminophen (Tylenol Tab) 650 mg Q6H PRN PO PAIN LEVEL 1-3 OR FEVER Last administered on 02/19/17 06:33; Admin Dose 650 MG; Start 02/17/17 at 17:30 Acetaminophen/ Hydrocodone Bitart ([place] (5/325)) 1 tab Q6H PRN PO PAIN LEVEL 4 -6 Last administered on 02/19/17 10:56; Admin Dose 1 TAB; Start 02/17/17 at 17:30 Docusate Sodium (Colace) 100 mg Q12H PRN PO CONSTIPATION; Start 02/17/17 at 17 :30 Magnesium Hydroxide (Milk Of Mag) 30 ml DAILY PRN PO CONSTIPATION; Start 02/17 at 17:30 Bisacodyl (Dulcolax Supp) 10 mg DAILY PRN [place] CONSTIPATION; Start 02/17/17 at 17:30 Enoxaparin Sodium (Lovenox) 40 mg DAILY SC Last administered on 02/19/17 08: 35; Admin Dose 40 MG; Start 02/18/17 at 09:00 Clopidogrel Bisulfate (plaVIX) 75 mg DAILY PO Last administered on 02/19/17 08:16; Admin Dose 75 MG; Start 02/18/17 at 09:00 Diagnostic Test (Pha) (Accu-Chek) 1 ea 02 XX ; Start 02/18/17 at 02:00 Insulin Glargine (Lantus) 27 unit DAILY@20 SC Last administered on 02/18/17 20:55; Admin Dose 27 UNIT; Start 02/17/17 at 20:00 Miscellaneous Information 1 ea NOTE XX ; Start 02/17/17 at 18:00 Glucose (Glutose) 15 gm Q15M PRN PO DECREASED GLUCOSE; Start 02/17/17 at 18:00 Glucose (Glutose) 22.5 gm Q15M PRN PO DECREASED GLUCOSE; Start 02/17/17 at 18: 00 Dextrose (D50w Syringe) 25 ml Q15M PRN IV DECREASED GLUCOSE; Start 02/17/17 at 18:00 Dextrose (D50w Syringe) 50 ml Q15M PRN IV DECREASED GLUCOSE; Start 02/17/17 at 18:00 Glucagon (Glucagen) 1 mg Q15M PRN IM DECREASED GLUCOSE; Start 02/17/17 at 18: 00 Glucose (Glutose) 15 gm Q15M PRN BUCCAL DECREASED GLUCOSE; Start 02/17/17 at 18:00 Atorvastatin Calcium (Lipitor) 80 mg HS PO Last administered on 02/18/17 20: 52; Admin Dose 80 MG; Start 02/18/17 at 21:00 Hydralazine HCl (Apresoline) 10 mg Q6H PRN IV ELEVATED BLOOD PRESSURE; Start 02/18/17 at 09:30 Losartan Potassium (Cozaar) 25 mg BID PO Last administered on 02/19/17 08:17 ; Admin Dose 25 MG; Start 02/18/17 at 10:00 Famotidine (Pepcid) 20 mg BID PO Last administered on 02/19/17 08:16; Admin Dose 20 MG; Start 02/18/17 at 21:00 Ketorolac Tromethamine (Toradol) 15 mg Q6H PRN IV PAIN; Start 02/19/17 at 12: 00; Stop 02/22/17 at 11:59 Miscellaneous Information (* Miscellaneous Pharmacy Order) Discontinue current oral sulfonylur... ONCE ONCE XX ; Start 02/19/17 at 12:30; Stop 02/19/17 at 12:31; Status UNV Miscellaneous Information (* Miscellaneous Pharmacy Order) HYPOGLYCEMIA PROTOCOL w... ONCE ONCE XX ; Start 02/19/17 at 12:30; Stop 02/19/17 at 12:31 ; Status UNV Miscellaneous Information (* Miscellaneous Pharmacy Order) Discontinue all previ... ONCE ONCE XX ; Start 02/19/17 at 12:30; Stop 02/19/17 at 12:31; Status UNV Diagnostic Test (Pha) (Accu-Chek) 1 ea 02 XX ; Start 02/20/17 at 02:00; Status UNV CHANDU BARRON Feb 19, 2017 12:25
--- NOTE | 2017-02-19 14:50 | RADRPT ---
PROCEDURE: US Carotids. CLINICAL INDICATION: bruit , eval for stenosis CVA TECHNIQUE: Multiple sonographic of the carotid bifurcation region and vertebral arteries were obta ined utilizing go scale, duplex and color-flow imaging. The images were reviewed on a PACS worksta tion. COMPARISON: No prior studies are available for comparison. FINDINGS: Evaluation of the right carotid bifurcation region reveals no significant calcific atherosclerotic d isease. Evaluation of the left carotid bifurcation region reveals no significant calcific atherosclerotic di sease. There is mild intimal thickening bilaterally. There is a 31% stenosis in the right carotid bulb. There is antegrade flow within the vertebral arteries bilaterally. RIGHT CAROTID MEASUREMENTS: Common Carotid Kengwj48.4 (cm/sec) Internal Carotid Artery - twiexjql05.2 (cm/sec) Internal Carotid Artery - mid70.3 (cm/sec) Internal Carotid Artery - adluto62.8 (cm/sec) Internal Carotid/Common Carotid0.94 LEFT CAROTID MEASUREMENTS: Common Carotid Jedjnu39.2 (cm/sec) Internal Carotid Artery - celsjhsd74.9 (cm/sec) Internal Carotid Artery - mid51.8 (cm/sec) Internal Carotid Artery - vvaquz72.6 (cm/sec) Internal Carotid/Common Carotid0.98 RPTAT: AA IMPRESSION: No evidence for hemodynamically significant stenosis in the bilateral internal carotid arteries - va lidated velocity measurements with angiographic measurements, velocity criteria are extrapolated fro m diameter data as defined by the Society of Radiologists in Ultrasound Consensus Conference Radiolo gy 2003; 229;340-346. This study does indirectly reference the measurement of the distal ICA diamet er as the denominator for stenosis measurement. Normal antegrade flow in the vertebral arteries bilaterally. .Toni Molina MD, Date Time Electronically viewed and signed by .Toni Molina MD, MD on 02/19/2017 14:49 .S/
[2017-02-19] MEDS: ATORVASTATIN 80 MG TAB PO SCH (20:44)
[2017-02-19] MEDS: INSULIN GLARGINE [LANtus] 3 ML PEN SC SCH (21:00)
[2017-02-20] VITALS (7 sets, daily range): BP systolic 121–168; BP diastolic 70–80; PULSE 68–79; RESP 19–21
[2017-02-20] MEDS ORDERED: ACCU-CHEK XX SCH (02:00)
[2017-02-20] MEDS: ACCU-CHEK XX SCH (02:00)
[2017-02-20] MEDS: LEVOTHYROXINE 88 MCG TAB PO SCH (06:53)
[2017-02-20] MEDS: INSULIN ASPART [NOVOLOG] 3 ML PEN SC SCH ×5 (08:00→12:10)
[2017-02-20] MEDS: LOSARTAN 25 MG TAB PO SCH (09:01)
[2017-02-20] MEDS: ASPIRIN (EC) 81 MG TAB PO SCH (09:01)
[2017-02-20] MEDS: GABAPENTIN 300 MG CAP PO SCH (09:01)
[2017-02-20] MEDS: METOPROLOL (XL) 25 MG TAB PO SCH (09:01)
[2017-02-20] MEDS: FAMOTIDINE 20 MG TAB PO SCH (09:02)
[2017-02-20] MEDS: CLOPIDOGREL 75 MG TAB PO SCH (09:02)
[2017-02-20] MEDS: ENOXAPARIN 40 MG/0.4 ML SYG SC SCH (09:04)
[2017-02-20 10:12] LABS: CALCIUM 8.9 mg/dl (8.4-10.2); CREATININE 0.82 mg/dl (0.44-1.00); MAGNESIUM 1.7 mg/dl (1.7-2.5); PHOSPHORUS 4.4 mg/dl (2.5-4.9); POTASSIUM 4.6 mmol/L (3.5-5.1)
--- NOTE | 2017-02-20 12:00 | CONS ---
Date/Time of Note Date/Time of Note DATE: 02/20/17 TIME: 11:49 Consult Date/Type/Reason Admit Date/Time Feb 17, 2017 at 13:06 Initial Consult Date 02/18/17 Type of Consultation: Neurology Reason for Consultation Neurology Ordering Provider: CHANDU BARRON Subjective c/o headache requesting to go home Objective Vital Signs Date Time Temp Pulse Resp B/P Pulse Ox O2 Delivery O2 Flow Rate FiO2 02/20/17 08:12 75 02/20/17 07:30 98.1 19 149/70 98 02/17/17 20:52 Room Air Intake and Output 02/19/17 02/19/17 02/20/17 15:00 23:00 07:00 Intake Total 880 ml 200 ml Balance 880 ml 200 ml Exam Constitutional: alert, obese, oriented Neurological: nl mental status, nl speech (left NLF flattening, left arm 4/5 drift and left leg 4/5 decreased sensation to left arm and leg) Results/Medications Result Diagram: 02/18/17 0514 02/20/17 0827 Results 24 hrs Laboratory Tests Test 02/19/17 12:01 02/19/17 12:25 02/19/17 13:14 02/19/17 17:26 Bedside Glucose 65 L 74 192 209 Test 02/19/17 20:50 02/20/17 02:04 02/20/17 08:27 02/20/17 08:46 Bedside Glucose 102 185 242 H Sodium Level 134 L Potassium Level 4.6 Chloride Level 104 Carbon Dioxide Level 23 Anion Gap 12 Blood Urea Nitrogen 15 Creatinine 0.82 Glucose Level 251 H Calcium Level 8.9 Phosphorus Level 4.4 Magnesium Level 1.7 Medications Current Medications Aspirin (Halfprin) 81 mg DAILY PO Last administered on 02/20/17 09:01; Admin Dose 81 MG; Start 02/18/17 at 09:00 Gabapentin (Neurontin) 300 mg BID PO Last administered on 02/20/17 09:01; Admin Dose 300 MG; Start 02/17/17 at 21:00 Levothyroxine Sodium (Synthroid) 88 mcg DAILY@06 PO Last administered on 06:53; Admin Dose 88 MCG; Start 02/18/17 at 06:00 Metoprolol Succinate (Toprol Xl) 75 mg DAILY PO Last administered on 09:01; Admin Dose 75 MG; Start 02/18/17 at 09:00 Ondansetron HCl (Zofran Inj) 4 mg Q6H PRN IV NAUSEA AND/OR VOMITING; Start at 17:30 Acetaminophen (Tylenol Tab) 650 mg Q6H PRN PO PAIN LEVEL 1-3 OR FEVER Last administered on 02/19/17 06:33; Admin Dose 650 MG; Start 02/17/17 at 17:30 Acetaminophen/ Hydrocodone Bitart ([place] (5/325)) 1 tab Q6H PRN PO PAIN LEVEL 4 -6 Last administered on 02/19/17 10:56; Admin Dose 1 TAB; Start 02/17/17 at 17:30 Docusate Sodium (Colace) 100 mg Q12H PRN PO CONSTIPATION; Start 02/17/17 at 17 :30 Magnesium Hydroxide (Milk Of Mag) 30 ml DAILY PRN PO CONSTIPATION; Start 02/17 at 17:30 Bisacodyl (Dulcolax Supp) 10 mg DAILY PRN [place] CONSTIPATION; Start 02/17/17 at 17:30 Enoxaparin Sodium (Lovenox) 40 mg DAILY SC Last administered on 02/20/17 09: 04; Admin Dose 40 MG; Start 02/18/17 at 09:00 Clopidogrel Bisulfate (plaVIX) 75 mg DAILY PO Last administered on 02/20/17 09:02; Admin Dose 75 MG; Start 02/18/17 at 09:00 Diagnostic Test (Pha) (Accu-Chek) 1 ea 02 XX ; Start 02/18/17 at 02:00 Insulin Glargine (Lantus) 27 unit DAILY@20 SC Last administered on 02/19/17 21:00; Admin Dose 27 UNIT; Start 02/17/17 at 20:00 Miscellaneous Information 1 ea NOTE XX ; Start 02/17/17 at 18:00 Glucose (Glutose) 15 gm Q15M PRN PO DECREASED GLUCOSE; Start 02/17/17 at 18:00 Glucose (Glutose) 22.5 gm Q15M PRN PO DECREASED GLUCOSE; Start 02/17/17 at 18: 00 Dextrose (D50w Syringe) 25 ml Q15M PRN IV DECREASED GLUCOSE; Start 02/17/17 at 18:00 Dextrose (D50w Syringe) 50 ml Q15M PRN IV DECREASED GLUCOSE; Start 02/17/17 at 18:00 Glucagon (Glucagen) 1 mg Q15M PRN IM DECREASED GLUCOSE; Start 02/17/17 at 18: 00 Glucose (Glutose) 15 gm Q15M PRN BUCCAL DECREASED GLUCOSE; Start 02/17/17 at 18:00 Atorvastatin Calcium (Lipitor) 80 mg HS PO Last administered on 02/19/17 20: 44; Admin Dose 80 MG; Start 02/18/17 at 21:00 Hydralazine HCl (Apresoline) 10 mg Q6H PRN IV ELEVATED BLOOD PRESSURE; Start 02/18/17 at 09:30 Losartan Potassium (Cozaar) 25 mg BID PO Last administered on 02/20/17 09:01 ; Admin Dose 25 MG; Start 02/18/17 at 10:00 Famotidine (Pepcid) 20 mg BID PO Last administered on 02/20/17 09:02; Admin Dose 20 MG; Start 02/18/17 at 21:00 Ketorolac Tromethamine (Toradol) 15 mg Q6H PRN IV PAIN; Start 02/19/17 at 12: 00; Stop 02/22/17 at 11:59 Diagnostic Test (Pha) (Accu-Chek) 1 ea 02 XX ; Start 02/20/17 at 02:00 Influenza Virus Vaccine (Fluzone) 0.5 ml ONCE ONCE IM* ; Start 02/21/17 at 09: 00; Stop 02/21/17 at 09:01 Assessment/Plan Chief Complaint/Hosp Course 46 yo female with DM, HTN, CAD, obesity uncontrolled risk factors admitted with right internal capsule infarct with left sided motor and sensory weakness. Etiology small vessel disease Plan: SBP less than 140/90 MRA Neck without contrast- discontinued patient is claustrophic will order a Duplex instead- negative for stenosis uncontrolled DM requires more optimal control weight loss dietary modification c/w dual antiplatelet Lipitor 80 mg for LDL >100 Toradol 15 mg q6h prn for ENCARNACION c/w Gabapentin for neuropathy may pursue further keller as outpatient for neuropathy d/c today, AR was recommended patient wants to go home can fu for outpatient therapies neurology fu Problems: SRAVANI LOCKHART MD Feb 20, 2017 11:59
[2017-02-20] MEDS: HYDROCODONE/APAP (5/325) TAB PO PRN (12:08)
--- NOTE | 2017-02-20 12:10 | PN ---
Date/Time of Note Date/Time of Note DATE: 02/20/17 TIME: 11:47 Assessment/Plan VTE Prophylaxis VTE Prophylaxis Intervention: LMWH Lines/Catheters IV [facility] Type (from [facility] Saline Lock Assessment/Plan Assessment/Plan 46-year-old female: 1. Late acute/subacute CVA, with right internal capsule/thalamus infarct on MRI , appreciate recommendations from neurology, patient's deficits are not progressing. Blood pressure was elevated overnight but now better controlled. Carotid Doppler ultrasound within normal. Will follow up with echocardiogram results Continue current medications, patient agrees with home health physical therapy and RN. Continue aspirin and Plavix 2. Type 1 diabetes mellitus: Uncontrolled, A1c 10.3, insulin has been redosed. Appreciate hematology nurse educator recommendations Adjusting insulin regimen, will require glucometer upon discharge Will refer to endocrinology and outpatient diabetic education at the time on discharge today 3. Hypertension: Medications have been adjusted, patient on Toprol-XL, Cozaar has been added. Hydralazine as needed. Blood pressure better controlled 4. Hyperlipidemia: Patient started on Lipitor 80 mg p.o. nightly. Lifestyle/diet modifications. 5. Morbid obesity: Lifestyle/diet modifications, TFTs within normal. 6. Hypothyroidism: Continue Synthroid, TFTs within normal. 7. Diabetic neuropathy, gastroparesis, possible retinopathy: Continue current medications, I have advised patient again, he needs to have a blood sugars better control if she expects any improvement of these complications of her diabetes mellitus. 8. Tobacco use: Patient has agreed to quit, she was down to 2 cigarettes a day. Prophylaxis: Lovenox for DVT prophylaxis, Pepcid for GI prophylaxis. Disposition: Discharge home with home health PT and RN today. Follow-up with primary care physician within 1 week. Follow-up with neurology as an outpatient within 1-2 weeks. Refer to endocrinology as outpatient. FWW for home Subjective 24 Hr Interval Summary Free Text/Dictation Patient remained stable, no hypoglycemic episodes. She will be discharged home today with home health PT and also home health RN for diabetic education, patient has reconsidered overnight and is willing to do it. Also FWW has been ordered for home. Exam/Review of Systems Vital Signs Vitals Vital Signs Date Time Temp Pulse Resp B/P Pulse Ox O2 Delivery O2 Flow Rate FiO2 02/20/17 08:12 75 02/20/17 07:30 98.1 19 149/70 98 02/17/17 20:52 Room Air Intake and Output 02/19/17 02/19/17 02/20/17 15:00 23:00 07:00 Intake Total 880 ml 200 ml Balance 880 ml 200 ml Exam Constitutional: alert, oriented, well developed Respiratory: clear to auscultation, normal air movement Cardiovascular: nl pulses, regular rate and rhythm Gastrointestinal: non-tender, soft Musculoskeletal: nl extremities to inspection Extremities: normal pulses Neurological: CONSUMER INSIGHTS SPECIALIST II-XII intact, focal weakness (Left mild hemiparesis and paresthesias), nl mental status, nl speech Lymph: nl lymph nodes Results Result Diagram: 02/18/17 0514 02/20/17 0827 Results 24 hrs Laboratory Tests Test 02/19/17 12:01 02/19/17 12:25 02/19/17 13:14 02/19/17 17:26 Bedside Glucose 65 L 74 192 209 Test 02/19/17 20:50 02/20/17 02:04 02/20/17 08:27 02/20/17 08:46 Bedside Glucose 102 185 242 H Sodium Level 134 L Potassium Level 4.6 Chloride Level 104 Carbon Dioxide Level 23 Anion Gap 12 Blood Urea Nitrogen 15 Creatinine 0.82 Glucose Level 251 H Calcium Level 8.9 Phosphorus Level 4.4 Magnesium Level 1.7 Medications Medications Current Medications Aspirin (Halfprin) 81 mg DAILY PO Last administered on 02/20/17 09:01; Admin Dose 81 MG; Start 02/18/17 at 09:00 Gabapentin (Neurontin) 300 mg BID PO Last administered on 02/20/17 09:01; Admin Dose 300 MG; Start 02/17/17 at 21:00 Levothyroxine Sodium (Synthroid) 88 mcg DAILY@06 PO Last administered on 06:53; Admin Dose 88 MCG; Start 02/18/17 at 06:00 Metoprolol Succinate (Toprol Xl) 75 mg DAILY PO Last administered on 09:01; Admin Dose 75 MG; Start 02/18/17 at 09:00 Ondansetron HCl (Zofran Inj) 4 mg Q6H PRN IV NAUSEA AND/OR VOMITING; Start at 17:30 Acetaminophen (Tylenol Tab) 650 mg Q6H PRN PO PAIN LEVEL 1-3 OR FEVER Last administered on 02/19/17 06:33; Admin Dose 650 MG; Start 02/17/17 at 17:30 Acetaminophen/ Hydrocodone Bitart ([place] (5/325)) 1 tab Q6H PRN PO PAIN LEVEL 4 -6 Last administered on 02/19/17 10:56; Admin Dose 1 TAB; Start 02/17/17 at 17:30 Docusate Sodium (Colace) 100 mg Q12H PRN PO CONSTIPATION; Start 02/17/17 at 17 :30 Magnesium Hydroxide (Milk Of Mag) 30 ml DAILY PRN PO CONSTIPATION; Start 02/17 at 17:30 Bisacodyl (Dulcolax Supp) 10 mg DAILY PRN [place] CONSTIPATION; Start 02/17/17 at 17:30 Enoxaparin Sodium (Lovenox) 40 mg DAILY SC Last administered on 02/20/17 09: 04; Admin Dose 40 MG; Start 02/18/17 at 09:00 Clopidogrel Bisulfate (plaVIX) 75 mg DAILY PO Last administered on 02/20/17 09:02; Admin Dose 75 MG; Start 02/18/17 at 09:00 Diagnostic Test (Pha) (Accu-Chek) 1 ea 02 XX ; Start 02/18/17 at 02:00 Insulin Glargine (Lantus) 27 unit DAILY@20 SC Last administered on 02/19/17 21:00; Admin Dose 27 UNIT; Start 02/17/17 at 20:00 Miscellaneous Information 1 ea NOTE XX ; Start 02/17/17 at 18:00 Glucose (Glutose) 15 gm Q15M PRN PO DECREASED GLUCOSE; Start 02/17/17 at 18:00 Glucose (Glutose) 22.5 gm Q15M PRN PO DECREASED GLUCOSE; Start 02/17/17 at 18: 00 Dextrose (D50w Syringe) 25 ml Q15M PRN IV DECREASED GLUCOSE; Start 02/17/17 at 18:00 Dextrose (D50w Syringe) 50 ml Q15M PRN IV DECREASED GLUCOSE; Start 02/17/17 at 18:00 Glucagon (Glucagen) 1 mg Q15M PRN IM DECREASED GLUCOSE; Start 02/17/17 at 18: 00 Glucose (Glutose) 15 gm Q15M PRN BUCCAL DECREASED GLUCOSE; Start 02/17/17 at 18:00 Atorvastatin Calcium (Lipitor) 80 mg HS PO Last administered on 02/19/17 20: 44; Admin Dose 80 MG; Start 02/18/17 at 21:00 Hydralazine HCl (Apresoline) 10 mg Q6H PRN IV ELEVATED BLOOD PRESSURE; Start 02/18/17 at 09:30 Losartan Potassium (Cozaar) 25 mg BID PO Last administered on 02/20/17 09:01 ; Admin Dose 25 MG; Start 02/18/17 at 10:00 Famotidine (Pepcid) 20 mg BID PO Last administered on 02/20/17 09:02; Admin Dose 20 MG; Start 02/18/17 at 21:00 Ketorolac Tromethamine (Toradol) 15 mg Q6H PRN IV PAIN; Start 02/19/17 at 12: 00; Stop 02/22/17 at 11:59 Diagnostic Test (Pha) (Accu-Chek) 1 ea 02 XX ; Start 02/20/17 at 02:00 Influenza Virus Vaccine (Fluzone) 0.5 ml ONCE ONCE IM* ; Start 02/21/17 at 09: 00; Stop 02/21/17 at 09:01 CHANDU BARRON Feb 20, 2017 12:08
--- NOTE | 2017-02-20 12:14 | PDOCDIS ---
Discharge Instructions CONDITION Patient Condition: Stable HOME CARE INSTRUCTIONS: Diet Instructions: Low Fat /CholesterolSpecial Diet: carb controlled ACTIVITY: Activity Restrictions: Slowly Increase Activity FOLLOW UP/APPOINTMENTS Follow-up Plan Home health PT Home health RN for diabetic education Referral to endocrinology, type I diabetic mellitus needs better blood sugar control Referral to neurology as an outpatient, follow-up status post CVA Follow-up with primary care physician within 1-2 weeks CHANDU BARRON Feb 20, 2017 12:14
[2017-02-20] MEDS ORDERED: ATOR80TA75 PO (12:21)
[2017-02-20] MEDS ORDERED: FAMO20TA18 PO (12:21)
[2017-02-20] MEDS ORDERED: CLOP75TA28 PO (12:21)
[2017-02-20] MEDS ORDERED: INSU200I SQ (12:21)
[2017-02-20] MEDS ORDERED: LOSA25TA2 PO (12:21)
[2017-02-20] MEDS ORDERED: INSU300I SQ (12:21)
[2017-02-20] MEDS ORDERED: GABA300C PO (12:24)
[2017-02-20] MEDS ORDERED: METO-335 PO (12:24)
[2017-02-20] MEDS ORDERED: LEVO88TA3 PO (12:24)
[2017-02-20] MEDS ORDERED: ASPI-664 PO (12:24)
--- NOTE | 2017-02-21 07:39 | RADRPT ---
Echocardiogram Report Patient Name: FABIANO VELASQUEZ Gender: Female Date: 1970 Study Date: 18-Feb-2017 Windows Laptop Technician: Agustin [facility] Location: 5553-A Ref. Physician: KELLY BARRON Quality: Adequate Procedures: Transthoracic echocardiogram with complete 2D, M-Mode, and doppler examination. Indications: Cerebrovascular Accident. 2D/M Mode Doppler Measurement Value Normal Ranges Measurement Value Normal Ranges LVIDd 2D 4.2 3.5 - 5.6 cm AV Peak Franck 1.7 m/sec LVIDs 2D 2.7 2.1 - 4.1 cm AV Peak PG 11.0 mmHg FS 2D 35.4 % LVOT Peak Franck 1.2 m/sec LVPWd 2D 1.3 0.6 - 1.1 cm LVOT Peak PG 5.0 mmHg IVSd 2D 1.3 0.6 - 1.1 cm MV E Peak Franck 1.0 m/sec IVS/LVPW 2D 1.0 MV A Peak Franck 1.0 m/sec AoR Diam 2D 2.8 2.0 - 3.7 cm MV E/A 1.0 LA/Ao 2D 1 0 - 1 MV Decel Time 222 msec EDV 2D 71.5 cm3 MV E/A 1.0 ESV 2D 19.2 cm3 TR Peak Franck 2.2 m/sec LA Dimen 2D 4.1 2.3 - 4.0 cm TR Peak PG 19.0 mmHg RVSP 22.0 mmHg Findings Left Ventricle: Normal left ventricular systolic function. Normal left ventricular cavity size. Moderate concentric left ventricular hypertrophy. Ejection fraction is visually estimated at 60 %. Tissue Doppler/Mitral Doppler indices are consistent with impaired relaxation (Stage I diastolic dysfunction). Right Ventricle: Normal right ventricular size. Normal right ventricular systolic function. Left Atrium: There is mild enlargement of left atrium. Right Atrium: The right atrium is normal in size. Mitral Valve: Mild mitral leaflet calcification. Mild mitral annular calcification. Trace mitral regurgitation. Aortic Valve: Normal appearance of the aortic valve. No significant aortic stenosis or insufficiency. Tricuspid Valve: Normal appearance of the tricuspid valve. Estimated peak PA systolic pressure 22 mmHg. There is trace tricuspid regurgitation. Pulmonic Valve: Pulmonic valve not well visualized. There is trace pulmonic regurgitation. Pericardium: Normal pericardium with no significant pericardial effusion. Aorta: Normal aortic root. IVC: Normal size and normal respiratory collapse consistent with normal right atrial pressure. Conclusions 1.Normal left ventricular systolic function. Normal left ventricular cavity size. Moderate concentric left ventricular hypertrophy. Ejection fraction is visually estimated at 60 %. Tissue Doppler/Mitral Doppler indices are consistent with impaired relaxation (Stage I diastolic dysfunction). 2.Mild mitral leaflet calcification. Mild mitral annular calcification. Trace mitral regurgitation. 3.Normal appearance of the aortic valve. No significant aortic stenosis or insufficiency. 4.Normal appearance of the tricuspid valve. Estimated peak PA systolic pressure 22 mmHg. There is trace tricuspid regurgitation. 5.Pulmonic valve not well visualized. There is trace pulmonic regurgitation. 6.Normal pericardium with no significant pericardial effusion. Electronically Signed By: Aurelia Quezada 21-Feb-2017 07:39:28 -0800 Patient Name: FABIANO VELASQUEZ Study Date: 18-Feb-2017 [id number]
[2017-02-21] MEDS ORDERED: INFLUENZA VIRUS VACCINE 0.5 ML SYG IM* ONE (09:00)
== END 2017-02-20 13:35 | disposition home health service (06) | DRG 65 ==
LOC: E/R 08:10 → MS4 13:06
PROVIDERS: ADMIT Internal Medicine; ATTEND Internal Medicine
DX: I63.9 Cerebral infarction, unspecified (principal); E87.1 Hypo-osmolality and hyponatremia; K31.84 Gastroparesis; E10.40 Type 1 diabetes mellitus with diabetic neuropathy, unspecified; E10.65 Type 1 diabetes mellitus with hyperglycemia; E66.01 Morbid (severe) obesity due to excess calories; E10.319 Type 1 diabetes mellitus with unspecified diabetic retinopathy without macular edema; E03.9 Hypothyroidism, unspecified; E78.5 Hyperlipidemia, unspecified; I10 Essential (primary) hypertension; I16.0 Hypertensive urgency; I25.10 Atherosclerotic heart disease of native coronary artery without angina pectoris; F17.200 Nicotine dependence, unspecified, uncomplicated; Z68.34 Body mass index [BMI] 34.0-34.9, adult
CPT/HCPCS: 36415; 70450; 70544; 70551; 71010; 80048; 80053; 80061; 82962; 83036; 83735; 84100; 84439; 84443; 84484; 85025; 85610; 85730; 92523; 92610; 93005; 93306; 93880; 96372; 96374; 96375; 97110; 97116; 97162; 97167; 97530; 97535; J0360; J1650; J1815; J2060; J7030